=== PATIENT | female | born 1955 | race Caucasian/White ===

== ENCOUNTER → 2016-08-30 | Outpatient (CLI) | payer BC ==
--- NOTE | 2016-08-30 14:54 | DIAGNOSTIC IMAGING REPORT ---
CHEST CT WITH CONTRAST CT DOSE: 594.31 mGy.cm HISTORY: OVARIAN CANCER TECHNIQUE: Multiaxial CT images of the chest were performed following the intravenous administration of contrast. COMPARISON: Chest 03/03/2016. FINDINGS: Small linear density within the right middle lobe likely represent subsegmental atelectasis are scarring. The lungs are otherwise clear. No suspicious pulmonary nodules identified. No suspicious lytic or blastic osseous lesions. The mediastinal vascular structures are within normal limits. No mediastinal or hilar lymphadenopathy. No pleural effusion or pneumothorax. Limited views of the upper abdomen demonstrate a normal liver and spleen. IMPRESSION: No evidence for metastatic disease within the chest. Electronically signed by: Albino Brantley M.D. 08/30/2016 12:33 PM Dictated Date/Time: 08/30/2016 12:22 PM
--- NOTE | 2016-08-30 14:54 | DIAGNOSTIC IMAGING REPORT ---
CT OF THE ABDOMEN AND PELVIS WITH CONTRAST CLINICAL HISTORY: Ovarian cancer. COMPARISON STUDY: CT of the abdomen and pelvis February 24, 2016. TECHNIQUE: Following IV administration of 94 mL of Optiray-320, axial images of the abdomen and pelvis were obtained from the lung bases to the proximal femurs. Images were reviewed in the axial, sagittal, and coronal planes. IV contrast was administered without complication. Oral contrast was administered. FINDINGS: The chest will be reported separately. There is suspected fatty infiltration of the liver. The spleen, adrenal glands, kidneys and pancreas are normal. There is no biliary or pancreatic ductal dilatation. The caliber and wall thickness of small and large bowel are normal. There is left colon diverticulosis without evidence for acute diverticulitis. The uterus and ovaries have been resected. No peritoneal nodules are identified by CT. No enlarged abdominal or pelvic lymph nodes are identified. There are no suspicious skeletal lesions. There is no ascites. IMPRESSION: No evidence of metastatic disease within the abdomen or pelvis. Electronically signed by: Wesley Monroe M.D. 08/30/2016 12:34 PM Dictated Date/Time: 08/30/2016 12:26 PM
== END | disposition home or self-care (01) ==
LOC: C.CTS 11:27
PROVIDERS: ATTEND Internal Medicine Hematology & Oncology
DX: C56.9 Malignant neoplasm of unspecified ovary (principal)

== ENCOUNTER → 2017-03-11 | Outpatient (CLI) | payer BC ==
[~2017-03-11] MED LIST: OPTIRAY 320 IV PRN
[2017-03-11 12:06] LABS: BASO % 0.4 %; BASO ABS # 0.02 K/uL (0-0.2); COMPLETE YES; EOS % 3.9 %; HEMATOCRIT 40.6 % (37-47); IG% 0.4 %; LYMPH % 20.6 %; LYMPH ABS # 1.16 K/uL (1.2-3.4); MEAN CELL VOLUME 94.4 fL (80-100); MEAN CORPUSCULAR HEMOGLOBIN 31.2 pg (25-34); MEAN PLATELET VOLUME 10.1 fL (7.4-10.4); MONO % 8.5 %; NEUT % 66.2 %; PLATELET COUNT 314 K/uL (130-400); WHITE BLOOD COUNT 5.64 K/uL (4.8-10.8)
[2017-03-11 12:45] LABS: ALT/SGPT 45 U/L (12-78); AST/SGOT 24 U/L (15-37); BLOOD UREA NITROGEN 12 mg/dl (7-18); BUN/CREATININE RATIO 14.4 (10-20); CALCIUM 9.7 mg/dl (8.5-10.1); CARBON DIOXIDE 27 mmol/L (21-32); CHLORIDE 104 mmol/L (98-107); CREATININE 0.82 mg/dl (0.60-1.20); GLUCOSE 98 mg/dl (70-99); POTASSIUM 3.8 mmol/L (3.5-5.1); SODIUM 139 mmol/L (136-145)
[2017-03-11 12:47] LABS: ALKALINE PHOSPHATASE 72 U/L (45-117)
--- NOTE | 2017-03-11 13:15 | DIAGNOSTIC IMAGING REPORT ---
ABD/PELVIS IV AND ORAL CONT HISTORY: 61 years-old Female ovarian cancer follow-up study. COMPARISON: CT abdomen and pelvis 08/30/2016 TECHNIQUE: Multiple axial CT images of the abdomen and pelvis were obtained following the intravenous administration of 93 mL Optiray 320. Oral contrast was also used. A dose lowering technique was used consistent with the principals of [facility]. FINDINGS: The lung bases are generally clear with minimal linear atelectasis or scarring present within the right middle lobe and left lower lobe. There is no pneumoperitoneum. Imaged inferior cardiac chambers are unremarkable. There is a circumscribed low attenuating lesion of the lateral left hepatic lobe measuring up to 7 mm which is nonspecific and unchanged from 08/30/2016. Statistically this would favor a cyst or hemangioma. The spleen, gallbladder, pancreas and adrenal glands appear normal. The bilateral kidneys and urinary bladder appear normal. Prior hysterectomy. There is mild degree of mixed plaquing of the abdominal aorta. No bulky retroperitoneal adenopathy. There is a small sliding-type hiatal hernia. There is no bowel obstruction. Large stool ball seen within the rectal vault. There is colonic diverticulosis without diverticulitis. Soft tissues are unremarkable. The bones appear to be intact. IMPRESSION: 1. No acute intra-abdominal or intrapelvic abnormality. 2. No evidence of metastatic disease or pathologic adenopathy. 3. Small sliding-type hiatal hernia. 4. Colonic diverticulosis without diverticulitis. The above report was generated using voice recognition software. It may contain grammatical, syntax or spelling errors. Electronically signed by: Yogesh Crow M.D. 03/11/2017 1:14 PM Dictated Date/Time: 03/11/2017 12:56 PM
== END | disposition home or self-care (01) ==
LOC: C.CTS 10:11
PROVIDERS: ATTEND Internal Medicine Hematology & Oncology
DX: C56.9 Malignant neoplasm of unspecified ovary (principal); K57.30 Diverticulosis of large intestine without perforation or abscess without bleeding